=== PATIENT | female | born 1960 | race Caucasian/White ===

== ENCOUNTER 2017-01-01 13:52 | Emergency (ER) | payer OTHER ==
[~2017-01-01] VITALS: Ht 157.5 cm; Wt 82.6 kg
[~2017-01-01 13:52] MED LIST: ALPR1TAB6 PO; oxygen at night
[2017-01-01] MEDS ORDERED: IPRATRPIUM/ALBUTEROL 0.5/2.5MG 3 ML NEBU. NEB ONE (15:45)
[2017-01-01] MEDS ORDERED: ACETAMINOPHEN 500 MG TABLET PO ONE (15:45)
--- NOTE | 2017-01-01 16:01 | RAD ---
Indication cough and shortness of air for one week. PA and lateral views of the chest were obtained. Comparison is made to an examination 02/17/2015. The heart and pulmonary vessels appear normal. The lungs are clear. There is no pleural fluid or pneumothorax. Bony structures appear grossly intact. A significant change relative to the previous exam is not seen. IMPRESSION: No acute or focal process. No significant change
[2017-01-01 16:46] LABS: OBC FLU VALID
--- NOTE | 2017-01-01 16:48 | ED.ADGEN ---
Past Medical History Past Medical History: Anxiety, Asthma, Bronchitis, Hypertension, Other Additional Past Medical Histor: panic attacks Past Surgical History: Angioplasty, Other Additional Past Surgical Histo: knee Alcohol Use: None Drug Use: Marijuana Adult General Chief Complaint Chief Complaint: ANXIETY/PANIC ATTACK HPI HPI Patient is a 56 year old woman, history of hypertension, hyperlipidemia, anxiety, asthma, who presents to the emergency department with a complaint of cough productive sputum, with shortness of breath, and pain in the chest, also fever and chills. She did that all began several days ago. Positive for sick contacts, did not receive with patient this year. Patient states that "they told me he had some sort of cancer", when she is previously daily [employer], states this may have been about a year ago, states that "maybe was leukemia", but did not follow-up. Denies any recent travel or surgery, history of DVT or PE, any weakness emesis or tingling, any nausea or vomiting, any diarrhea, any injuries. Review of Systems Review of Systems Constitutional: Fever and chills. Eyes: Denies change in visual acuity. [] HENT: Denies nasal congestion or sore throat. [] Respiratory: Productive cough and shortness of breath. [] Cardiovascular: Chest pain with cough, no edema. GI: Denies abdominal pain, nausea, vomiting, bloody stools or diarrhea. [] : Denies dysuria. [] Musculoskeletal: Denies back pain or joint pain. [] Integument: Denies rash. [] Neurologic: Denies headache, focal weakness or sensory changes. [] Endocrine: Denies polyuria or polydipsia. [] Lymphatic: Denies swollen glands. [] Psychiatric: Denies depression or anxiety. [] Current Medications Current Medications Current Medications Medications (Trade) Dose Ordered Sig/Oswald Start Time Stop Time Status Last Admin Dose Admin Acetaminophen (Tylenol) 1,000 mg 1X ONCE 01/01/17 15:45 01/01/17 15:46 DC 01/01/17 17:28 1,000 MG Albuterol/ Ipratropium (Duoneb) 3 ml 1X ONCE 01/01/17 15:45 01/01/17 15:46 DC 01/01/17 16:03 3 ML Allergies Allergies Allergies Coded Allergies Type Severity Reaction Last Updated Verified No Known Drug Allergies 05/06/15 No Physical Exam Physical Exam Constitutional: Well developed, well nourished, no acute distress, non-toxic appearance. [] HENT: Normocephalic, atraumatic, bilateral external ears normal, oropharynx moist, no oral exudates, nose normal. [] Eyes: PERRLA, EOMI, conjunctiva normal, no discharge. [] Neck: Normal range of motion, no tenderness, supple, no stridor. [] Cardiovascular:Heart rate regular rhythm, no murmur, S1, S2, rubs or gallops. Mild chest wall tenderness in the back and anterior portion of the chest. [] Lungs & Thorax: Cough with deep inspiration, mild scattered wheeze, no rales, no rhonchi. [] Abdomen: Bowel sounds normal, soft, no tenderness, no masses, no pulsatile masses. [] Skin: Warm, dry, no erythema, no rash. [] Back: No tenderness, no CVA tenderness. [] Extremities: No tenderness, no cyanosis, no clubbing, ROM intact, no edema. [] Neurologic: Alert and oriented X 3, normal motor function, normal sensory function, no focal deficits noted. [] Psychologic: Affect normal, judgement normal, mood normal. [] Current Patient Data Vital Signs Vital Signs Date Time Temp Pulse Resp B/P Pulse Ox O2 Delivery O2 Flow Rate FiO2 01/01/17 19:53 100 20 137/71 95 Room Air 01/01/17 14:00 98.2 98.2 Lab Values Laboratory Tests Test 01/01/17 16:16 01/01/17 16:55 Influenza Type A Antigen Negative (NEGATIVE) Influenza Type B Antigen Negative (NEGATIVE) White Blood Count 13.7x10^3/uL (4.0-11.0) H Red Blood Count 5.67x10^6/uL (3.50-5.40) H Hemoglobin 16.4g/dL (12.0-15.5) H Hematocrit 50.0% (36.0-47.0) H Mean Corpuscular Volume 88fL (79-100) Mean Corpuscular Hemoglobin 29pg (25-35) Mean Corpuscular Hemoglobin Concent 33g/dL (31-37) Red Cell Distribution Width 13.7% (11.5-14.5) Platelet Count 195x10^3/uL (140-400) Neutrophils (%) (Auto) 64% (31-73) Lymphocytes (%) (Auto) 28% (24-48) Monocytes (%) (Auto) 6% (0-9) Eosinophils (%) (Auto) 2% (0-3) Basophils (%) (Auto) 1% (0-3) Neutrophils # (Auto) 8.7x10^3uL (1.8-7.7) H Lymphocytes # (Auto) 3.8x10^3/uL (1.0-4.8) Monocytes # (Auto) 0.9x10^3/uL (0.0-1.1) Eosinophils # (Auto) 0.2x10^3/uL (0.0-0.7) Basophils # (Auto) 0.1x10^3/uL (0.0-0.2) Sodium Level 140mmol/L (136-145) Potassium Level 3.6mmol/L (3.5-5.1) Chloride Level 100mmol/L (98-107) Carbon Dioxide Level 28mmol/L (21-32) Anion Gap 12 (6-14) Blood Urea Nitrogen 7mg/dL (7-20) Creatinine 0.7mg/dL (0.6-1.0) Estimated GFR (Cockcroft-Gault) 86.6 Glucose Level 175mg/dL (70-99) H Calcium Level 9.2mg/dL (8.5-10.1) Laboratory Tests 01/01/17 16:55 Laboratory Tests 01/01/17 16:55 EKG EKG EC: Sinus rhythm, heart rate 93 bpm, upright axis, QTC of 440, NM 138, QRS of 70, no ST elevations or depressions, no evidence of acute ST abnormalities. As interpreted by me. [] Radiology/Procedures Radiology/Procedures [][facility] [address], [place] [id number] IMAGING REPORT Signed PATIENT: MAR GUAJARDO ACCOUNT: [id number] : 1960 LOCATION: ER AGE: 56 SEX: F EXAM STATUS: REG ER ORD. PHYSICIAN: SANTY KAHN DO REASON: COUGH/SOA 19 PROCEDURE: CHEST PA & LATERAL Indication cough and shortness of air for one week. PA and lateral views of the chest were obtained. Comparison is made to an examination 02/17/2015. The heart and pulmonary vessels appear normal. The lungs are clear. There is no pleural fluid or pneumothorax. Bony structures appear grossly intact. A significant change relative to the previous exam is not seen. IMPRESSION: No acute or focal process. No significant change DICTATED and SIGNED BY: CYRIL PHAN MD DATE: 01/01/17 5090 CC: SANTY KAHN DO; JEWEL TIRADO MD ~ Course & Med Decision Making Course & Med Decision Making Pertinent Labs and Imaging studies reviewed. (See chart for details) Patient well-appearing emergency department, is obtained after her report that she "was told that I had some kind of cancer may be" 2 years ago. Patient with a hemoglobin of 16.6, potentially heme concentrated versus polycythemia, did discuss with patient, she now has a primary care provider, and will be able to follow-up, has an appointment on Wednesday to be seen in the office. Patient's symptoms and examination are most consistent with a viral respiratory infection , no evidence of lower airspace disease. Did discuss patient the importance of smoking cessation, patient states she is Tomás on this path. We discussed concerning symptoms that prompt return the ED, patient was discharged home with Tessalon Perles, albuterol inhaler, with clear and equal return instructions and plan as above. Dragon Disclaimer Dragon Disclaimer This electronic medical record was generated, in whole or in part, using a voice recognition dictation system. Departure Impression: Primary Impression: Viral upper respiratory infection Disposition: ADMITTED INPATIENT Condition: IMPROVED Scripts Naproxen 250 Mg [id number] Mg PO BID PRN COUGH #10 Prov:SANTY KAHN DO 01/01/17 Albuterol Sulfate (Proair Hfa Inhaler)8.5 Gm Hfa.[id number].[id number] Puff INH PRN Q6HRS PRN SHORTNESS OF BREATH #1 INHALER Ref 0 Prov:SANTY KAHN DO 01/01/17 Benzonatate (Tessalon Perle)100 Mg [id number] Mg PO TID PRN COUGH #14 CAP Prov:SANTY KAHN DO 01/01/17 SANTY KAHN DO Jan 01, 2017 16:48
[2017-01-01 17:25] LABS: BASO # 0.1 x10^3/uL (0.0-0.2); BASO % 1 % (0-3); EOS % 2 % (0-3); HEMOGLOBIN 16.4 g/dL (12.0-15.5); LYMPH # 3.8 x10^3/uL (1.0-4.8); LYMPH % 28 % (24-48); MEAN CORPUSCULAR HEMOGLOBIN 29 pg (25-35); MEAN CORPUSCULAR HGB CONC 33 g/dL (31-37); MEAN CORPUSCULAR VOLUME 88 fL (79-100); MONO % 6 % (0-9); NEUT % 64 % (31-73); PLATELET COUNT 195 x10^3/uL (140-400); RED BLOOD COUNT 5.67 x10^6/uL (3.50-5.40); RED CELL DISTRIBUTION WIDTH 13.7 % (11.5-14.5); WHITE BLOOD COUNT 13.7 x10^3/uL (4.0-11.0)
[2017-01-01 17:39] LABS: CALCIUM 9.2 mg/dL (8.5-10.1); CREATININE 0.7 mg/dL (0.6-1.0); GFR 86.6; POTASSIUM 3.6 mmol/L (3.5-5.1)
--- NOTE | 2017-01-01 18:52 | EKG ---
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
[2017-01-01] MEDS ORDERED: BENZ100C PO (19:25)
[2017-01-01] MEDS ORDERED: NAPR250T2 PO (19:25)
[2017-01-01] MEDS ORDERED: PROAIR HFA8.5 GM INH (19:25)
[2017-01-01 19:53] VITALS: BP 137/71
== END 2017-01-01 19:54 | disposition home or self-care (01) ==
LOC: ER 13:52
DX: J06.9 Acute upper respiratory infection, unspecified (principal); I10 Essential (primary) hypertension; E78.5 Hyperlipidemia, unspecified; F41.9 Anxiety disorder, unspecified; J45.909 Unspecified asthma, uncomplicated; F12.10 Cannabis abuse, uncomplicated; Z98.61 Coronary angioplasty status
CPT/HCPCS: 36415; 71020; 80048; 85027; 87804; 93005; 94250; 94640; 99285; J7620

== ENCOUNTER 2018-02-12 04:53 | Emergency (ER) | payer OTHER ==
[2018-02-12 05:26] LABS: BASO % 0 % (0-3); EOS # 0.3 x10^3/uL (0.0-0.7); EOS % 1 % (0-3); HEMOGLOBIN 16.7 g/dL (12.0-15.5); LYMPH # 4.7 x10^3/uL (1.0-4.8); LYMPH % 25 % (24-48); MEAN CORPUSCULAR HEMOGLOBIN 30 pg (25-35); MEAN CORPUSCULAR HGB CONC 35 g/dL (31-37); MEAN CORPUSCULAR VOLUME 87 fL (79-100); MONO # 1.1 x10^3/uL (0.0-1.1); MONO % 6 % (0-9); NEUT # 13.1 x10^3uL (1.8-7.7); NEUT % 68 % (31-73); PLATELET COUNT 241 x10^3/uL (140-400); RED BLOOD COUNT 5.54 x10^6/uL (3.50-5.40); RED CELL DISTRIBUTION WIDTH 13.6 % (11.5-14.5); WHITE BLOOD COUNT 19.2 x10^3/uL (4.0-11.0)
[2018-02-12 05:28] LABS: ADD MAN DIFF? YES; BILIRUBIN,URINE NEGATIVE (NEG); CLARITY,URINE TURBID; COLOR,URINE AMBER; GLUCOSE,URINE NEGATIVE (NEG); NITRITE,URINE NEGATIVE (NEG); PH,URINE 5.5; PROTEIN,URINE NEGATIVE (NEG-TRACE)
[2018-02-12 05:34] LABS: BACTERIA,URINE FEW /HPF (0-FEW); RBC,URINE 0 /HPF (0-2); SQUAMOUS EPITHELIAL CELL,UR MOD /LPF
[2018-02-12 05:35] LABS: BARBITURATES NEG (NEG); BENZODIAZEPINES NEG (NEG); CANNABINOIDS POS (NEG); COCAINE NEG (NEG); METHADONE NEG (NEG); OPIATES NEG (NEG); PHENCYCLIDINE NEG (NEG)
[2018-02-12 05:36] LABS: AMPHETAMINE/METHAMPHETAMINE NEG (NEG); ETHANOL, URINE NEG (NEG)
[2018-02-12 06:01] LABS: ACETAMIN < 2 mcg/ml (10-30); ETHANOL < 10 mg/dL (0-10); SALIC 10.1 mg/dL (2.8-20.0)
[2018-02-12 06:42] LABS: ANION GAP 16 (6-14); BLOOD UREA NITROGEN 13 mg/dL (7-20); CALCIUM 9.6 mg/dL (8.5-10.1); CARBON DIOXIDE 19 mmol/L (21-32); CHLORIDE 104 mmol/L (98-107); CREATININE 0.8 mg/dL (0.6-1.0); GFR 73.9; GLUCOSE 213 mg/dL (70-99); POTASSIUM 3.6 mmol/L (3.5-5.1); SODIUM 139 mmol/L (136-145)
[2018-02-12] MEDS: OLANZapine 2.5 MG TABLET PO (07:41)
[2018-02-12] MEDS ORDERED: CONTRAST GIVEN MC (08:30)
[2018-02-12] MEDS ORDERED: OLANZapine 2.5 MG TABLET PO (08:45)
[2018-02-12] MEDS: IOHEXOL 300 MG/ML 100ML VIAL. IV (08:45)
[2018-02-12 12:39] LABS: % LYMPHS 24 % (24-48); % MONOS 7 % (0-10); % SEGS 69 % (35-66)
[2018-02-12 12:40] LABS: PLT ESTIMATE ADEQUATE (ADEQUATE)
== END 2018-02-12 11:35 | disposition home or self-care (01) ==
LOC: ER 04:53
DX: F23 Brief psychotic disorder (principal); I10 Essential (primary) hypertension; J45.909 Unspecified asthma, uncomplicated; Z95.5 Presence of coronary angioplasty implant and graft; F12.10 Cannabis abuse, uncomplicated
CPT/HCPCS: 36415; 70470; 71045; 80048; 80307; 80329; 81001; 85007; 85025; 87086; 93005; 96374; 99285-25; G0480; J2060; Q9967